=== PATIENT | male | born 1980 ===

== ENCOUNTER → 2019-08-22 18:51 | Outpatient (ROUT) | payer MEDICARE, SELFPAY ==
[2019-08-22 18:56] LABS: RBC Urine None Seen (0-5/HPF)
[2019-08-22 19:08] LABS: Appearance Urine UA CLEAR; Bilirubin Urine UA NEGATIVE (NEGATIVE); Color Urine UA YELLOW; Glucose Urine UA NEGATIVE (Negative); Ketones Urine UA NEGATIVE (NEGATIVE); Leukocyte Esterase Urine UA 1+ (NEGATIVE); Nitrite Urine UA NEGATIVE (Negative); Occult Blood Urine UA TRACE-LYSED (Negative); Protein Urine UA NEGATIVE (Negative); Specific Gravity Urine UA <=1.005 (1.000-1.035); Urobilinogen Urine UA 0.2 E.U./dL (0.2); pH Urine UA 6.5 (4.5-8.0)
[2019-08-22 19:13] LABS: Culture Indicated Urine Cult Not Indicated
[2019-08-22 19:15] LABS: Bacteria Urine Many (>30); WBC Urine 1-5/HPF (0-5/HPF)
[2019-08-22 19:21] LABS: UR Morphine/Opiate cutoff 300 Negative (Negative); Ur Creatinine Normal (Normal); Ur Specific Gravity Normal (Normal); Urine Amphetamines Negative (Negative); Urine Barbiturates Negative (Negative); Urine Benzodiazepines Negative (Negative); Urine Cocaine Negative (Negative); Urine MDMA Negative (Negative); Urine Methadone Negative (Negative); Urine Methamphetamines Negative (Negative); Urine Oxycodone Negative (Negative); Urine Phencyclidine Negative (Negative); Urine Tetrahydrocannabinol Positive (Negative); Urine Tricyclic Antidepressant Negative (Negative); Urine pH Normal (Normal)
[2019-08-22 20:41] LABS: Urine N gonorrhoeae NOT DETECTED
[2019-08-22 20:58] LABS: Urine Chlamydia NOT DETECTED
== END ==
PROVIDERS: Visit Provider Internal Medicine
DX: R35.0 Frequency of micturition (principal); G89.21 Chronic pain due to trauma
CPT/HCPCS: 80305; 81001; 87077; 87086; 87186; 87491; 87591